=== PATIENT | female | born 2000 | race Caucasian/White ===

== ENCOUNTER 2020-02-10 09:56 | Emergency (ER) | payer OTHER ==
[2020-02-10 10:08] VITALS: BP 123/73
--- NOTE | 2020-02-10 10:18 | ER Document Report ---
HPI - HPI Time Seen by Provider: 02/10/20 10:10 Pain Level: Denies Notes: Otherwise healthy 19-year-old female presents the emergency department with concern for possible foreign body in her vagina. Patient reports she had a tampon in there yesterday and she is unable to take it out. Denies any other symptoms, abdominal pain, pelvic pain or fevers. - CONSTITUTIONAL Constitutional: DENIES: Fever, Chills Past Medical History - General Information source: Patient - Social History Smoking Status: Current Every Day Smoker Drug Abuse: Marijuana Family History: Reviewed & Not Pertinent Patient has suicidal ideation: No Patient has homicidal ideation: No - Medical History Medical History: Negative Surgical Hx: Negative - Immunizations Immunizations up to date: Yes Vertical Provider Document - CONSTITUTIONAL Notes: PHYSICAL EXAMINATION: GENERAL: Well-appearing, well-nourished and in no acute distress. HEAD: Atraumatic, normocephalic. EYES: Pupils equal round extraocular movements intact, conjunctiva are normal. ENT: Nares patent NECK: Normal range of motion LUNGS: No respiratory distress Musculoskeletal: Normal range of motion NEUROLOGICAL: Normal speech, normal gait. Vaginal: No foreign body noted in the vagina PSYCH: Normal mood, normal affect. SKIN: Warm, Dry, normal turgor, no rashes or lesions noted. Course - Re-evaluation Re-evalutation: Pelvic exam performed with Claudia Treviño RN. No foreign body was located in the vagina. - Vital Signs Vital signs: Temp Pulse Resp BP Pulse Ox 98.0 F 64 16 123/73 99 02/10/20 10:06 02/10/20 10:06 02/10/20 10:06 02/10/20 10:06 02/10/20 10:06 Discharge - Discharge Clinical Impression: Concern for foreign body in vagina Condition: Stable Disposition: HOME, SELF-CARE Additional Instructions: We were unable to see any tampon in the vagina. Please return to the ER or your primary care provider for any additional concerns.
== END 2020-02-10 10:55 | disposition home or self-care (01) ==
LOC: ER 09:56
DX: Z03.89 Encounter for observation for other suspected diseases and conditions ruled out (principal); T19.2XXA Foreign body in vulva and vagina, initial encounter; X58.XXXA Exposure to other specified factors, initial encounter; F17.200 Nicotine dependence, unspecified, uncomplicated
CPT/HCPCS: 99283

== ENCOUNTER 2020-06-27 11:35 | Emergency (ER) | payer OTHER ==
[2020-06-27 13:07] VITALS: BP 107/65
[2020-06-27 13:15] LABS: APPEARANCE,URINE CLEAR; BILIRUBIN,URINE NEGATIVE (NEGATIVE); COLOR,URINE COLORLESS; GLUCOSE, URINE NEGATIVE (NEGATIVE); KETONES,URINE NEGATIVE (NEGATIVE); LEUKOCYTE ESTERASE,URINE NEGATIVE (NEGATIVE); NITRITE,URINE NEGATIVE (NEGATIVE); PROTEIN,URINE NEGATIVE (NEGATIVE); URINE SPECIFIC GRAVITY 1.002; UROBILINOGEN,URINE NEGATIVE mg/dL (<2.0)
--- NOTE | 2020-06-27 13:41 | ER Document Report ---
ED GI/ - General Chief Complaint: Vomiting Stated Complaint: VOMITING Time Seen by Provider: 06/27/20 13:27 Mode of Arrival: Ambulatory Information source: Patient Notes: Patient is a 20-year-old female comes emergency room today complaining of vomiting since 630 this morning. She states the vomiting last until about 1030 and has now subsided completely. Patient states that she is noticed a association her having upset stomach with vomiting when she vapes before eating. She denies any abdominal pain no diarrhea or constipation. She has had no fevers. She is not short of breath. She has had no contact with anyone with COVID-19. She denies any other medical problems. Currently on no medications. TRAVEL OUTSIDE OF THE [place] IN LAST 30 DAYS: No - HPI Patient complains to provider of: No: Abdominal pain, Diarrhea, Dysuria, , Vaginal bleeding, Vaginal discharge Onset: This morning Timing/Duration: Sudden Quality of pain: No pain Severity at maximum: Mild Severity in ED: None Pain Level: 0 Context: Other - Vaping on empty stomach Vaginal bleeding (Compared to normal period): None LMP: 2 weeks ago : 0 Sexual history: Active, Unprotected intercourse. denies: Multiple partners, STD exposure Associated symptoms: Nausea, Vomiting Exacerbated by: Other - Vaping Similar symptoms previously: Yes Recently seen / treated by doctor: No - Related Data Allergies/Adverse Reactions: No Known Allergies Allergy (Unverified 02/10/20 10:07) Past Medical History - General Information source: Patient - Social History Smoking Status: Never Smoker Cigarette use (# per day): No Chew tobacco use (# tins/day): No Smoking Education Provided: No Frequency of alcohol use: None Drug Abuse: None, Marijuana Lives with: Family Family History: Reviewed & Not Pertinent Patient has suicidal ideation: No Patient has homicidal ideation: No - Immunizations Immunizations up to date: Yes Review of Systems - Review of Systems Constitutional: No symptoms reported EENT: No symptoms reported Cardiovascular: No symptoms reported Respiratory: No symptoms reported Gastrointestinal: See HPI, Nausea, Vomiting Genitourinary: No symptoms reported Female Genitourinary: No symptoms reported Musculoskeletal: No symptoms reported Skin: No symptoms reported Hematologic/Lymphatic: No symptoms reported Neurological/Psychological: No symptoms reported -: Yes All other systems reviewed and negative Physical Exam - Vital signs Vitals: Temp Pulse Resp BP Pulse Ox 98.5 F 63 16 107/65 100 06/27/20 12:58 06/27/20 12:58 06/27/20 12:58 06/27/20 12:58 06/27/20 12:58 Interpretation: Normal - Notes Notes: PHYSICAL EXAMINATION: GENERAL: Well-appearing, well-nourished and in no acute distress. HEAD: Atraumatic, normocephalic. ENT: Nares patent, oropharynx clear without exudates. Moist mucous membranes. NECK: Normal range of motion, supple without lymphadenopathy LUNGS: Breath sounds clear to auscultation bilaterally and equal. No wheezes rales or rhonchi. HEART: Regular rate and rhythm without murmurs ABDOMEN: Soft, nontender, nondistended abdomen. No guarding, no rebound. No masses appreciated. Female : deferred Musculoskeletal: Normal range of motion, no pitting or edema. No cyanosis. NEUROLOGICAL: . Normal speech, normal gait. Normal sensory, motor exams PSYCH: Normal mood, normal affect. SKIN: Warm, Dry, normal turgor, no rashes or lesions noted. Course - Re-evaluation Re-evalutation: 06/27/20 13:39 Patient had been waiting approximately an hour before I was able to see her in the exam room. She states now she feels perfectly fine and does not want any further investigation. I have informed her to check her urine as well as that was normal we will go ahead and send her home. I will send her home with some nausea medication. Her urine showed no . There was no abnormality to her urine. I have instructed patient that she should stop vaping especially since she knows this causes adverse effects to her body. And told her that sometimes is with chemicals they put in the gene that can cause this to happen. - Vital Signs Vital signs: Temp Pulse Resp BP Pulse Ox 98.5 F 63 16 107/65 100 06/27/20 12:58 06/27/20 12:58 06/27/20 12:58 06/27/20 12:58 06/27/20 12:58 Discharge - Discharge Clinical Impression: Engages in vaping Vomiting Qualifiers: Vomiting type: unspecified Vomiting Intractability: non-intractable Nausea presence: with nausea Qualified Code(s): R11.2 - Nausea with vomiting, unspecified Disposition: HOME, SELF-CARE Instructions: Antinausea Medication ([facility]), Vomiting ([facility]) Additional Instructions: Given you your vital signs are normal your urine is clean not and all symptoms have subsided you have already discussed what may be causing the problem. Given that the vaping upsets her stomach to the point of vomiting highly suggest that you reconsider vaping. I am going to give you something for nausea he can take with you. You can return to work tomorrow. Should you have any concerns or problems return to ER for reevaluation. Prescriptions: Promethazine HCl 12.5 mg PO Q6 PRN #12 tablet PRN Reason: Forms: Smoking Cessation Education, Return to Work
== END 2020-06-27 14:06 | disposition home or self-care (01) ==
LOC: ER 11:35
DX: R11.2 Nausea with vomiting, unspecified (principal); Z72.0 Tobacco use
CPT/HCPCS: 81001; 81025; 99284